=== PATIENT | female | born 1950 | race Caucasian/White ===

== ENCOUNTER → 2024-01-12 | Outpatient (CLI) | payer MEDICARE | LOC: RAD 12:11 | DX: M17.0 Bilateral primary osteoarthritis of knee (principal) ==

== ENCOUNTER → 2024-01-17 | Outpatient (RCR) | payer MEDICARE | LOC: PT | DX: M25.562 Pain in left knee (principal) ==

== ENCOUNTER 2024-01-18 08:00 | Outpatient (RCR) | payer MEDICARE | END 2024-02-17 | LOC: PT | DX: M25.562 Pain in left knee (principal) ==